=== PATIENT | female | born 1945 | race Caucasian/White ===

== ENCOUNTER 2017-02-14 05:15 | Inpatient (IN) | payer OTHER, MEDICARE ==
[2017-02-09 13:06] LABS: HEMATOCRIT 38.8 % (37.0-47.0); HEMOGLOBIN 12.8 gm/dL (12.0-15.0); MCH 28.9 pg (26.0-34.0); MCV 87.5 fL (80.0-100.0); RBC 4.43 mil/uL (4.20-5.00); RDW 14.7 % (10.5-14.5); WBC 14.1 thou/uL (4.0-11.0)
[2017-02-09 13:15] LABS: URINE BILIRUBIN NEGATIVE (Negative); URINE BLOOD NEGATIVE (Negative); URINE COLOR YELLOW; URINE GLUCOSE-RANDOM* NEGATIVE (Negative); URINE KETONES NEGATIVE (Negative); URINE LEUKOCYTES-REFLEX NEGATIVE (Negative); URINE PROTEIN (DIPSTICK) NEGATIVE (Negative); URINE SPECIFIC GRAVITY >= 1.030 (1.003-1.035); URINE UROBILINOGEN 0.2 E.U./dl (0.2-1.0)
[2017-02-09 13:23] LABS: ALBUMIN 3.8 g/dL (3.4-5.0); CALCIUM 8.9 mg/dL (8.5-10.1); CREATININE 1.1 mg/dL (0.6-1.0); POTASSIUM 4.4 mmol/L (3.5-5.1)
[~2017-02-14] VITALS: Ht 157.5 cm; Wt 81.6 kg
[2017-02-14] VITALS (7 sets, daily range): BP systolic 115–155; BP diastolic 77–94
--- NOTE | ~2017-02-14 | O ---
[facility] [place] [address] [place] [address] OPERATIVE REPORT Name: INGE TALLEY Room #: 411-P [facility] IN M.R.#: [id number] Admission: 02/14/17 Attend Phys: Олег Decker MD Discharge: Date of : 45 Report #: [id number] THIS REPORT FOR: //name// CC: Gregorio Decker DATE OF SERVICE: 02/14/2017 PREOPERATIVE DIAGNOSIS: Left knee osteoarthritis. POSTOPERATIVE DIAGNOSIS: Left knee osteoarthritis. PROCEDURE: Left total knee arthroplasty. SURGEON: Олег Decker MD HOME SUPERVISOR: Anastasiia Donnelly PA-C. ANESTHESIA: LMA with an adductor canal block. IMPLANTS: [employer] size 4 Legion cobalt chrome posterior stabilized femur, size 2 tibia, size 9 polyethylene and size 29 patella. TOURNIQUET TIME: 60 minutes. ESTIMATED BLOOD LOSS: 25 mL. COMPLICATIONS: None. SPECIMENS: None. CONDITION UPON LEAVING THE OPERATING ROOM: Stable. INDICATIONS FOR PROCEDURE: The patient is a 71-year-old female with severe left knee osteoarthritis. She had failed conservative treatment for this and after discussion with her, she elected for left total knee arthroplasty. DESCRIPTION OF PROCEDURE: Risks, benefits, alternatives, complications were discussed in detail with the patient including but not limited to risk of anesthesia, risk of damage to nerves, arteries, blood vessels, risk for infection, bleeding, risk for continued knee pain and need for reoperation. Informed consent was obtained from the patient. Left knee was appropriately marked in the preoperative holding area. Adductor canal block was placed by Anesthesia. IV Ancef was given for preoperative antibiotics. She was brought to the operating room and placed in supine position on the operating room table. Spinal anesthesia was attempted and was not successful and so it was decided to [address] [address] OPERATIVE REPORT Name: TALLEYINGE Room #: 411-P [facility] IN M.R.#: [id number] Admission: 02/14/17 Attend Phys: Олег Decker MD Discharge: Date of : 45 Report #: [id number] proceed with LMA anesthesia. After successful induction of anesthesia, a tourniquet was placed on the left thigh. Left lower extremity was prepped and draped in normal sterile fashion. Timeout was performed properly identifying the patient and procedure as well as the instrumentation and implants. All in the operating room were in agreement. Left lower extremity was exsanguinated, tourniquet was inflated. Tourniquet time was 60 minutes. Standard midline approach to the knee was made with 10 blade through the skin. Dissection was taken down sharply to the fascia and deep flaps were developed medially and laterally. Fresh 10 blade was used to make a medial parapatellar arthrotomy and the knee was inspected and there was extensive tricompartmental osteoarthritic change. Anterior horns of the meniscus were removed sharply. ACL and PCL were removed sharply. Deep retractors were placed. Patella was everted, knee was flexed. Drill was used to gain access to the canal of the femur and distal femoral cutting block was pinned in place. Distal femoral cut was made. The sizing block was placed and the femur was sized, found to be a size 4. The size 4, 4-in-1 cutting block was placed. Anterior, posterior and chamfer cuts were made. After this, the knee was hyperflexed. Attention was turned to the tibia. Drill was used to gain access to the canal of the tibia. Intramedullary alignment was used and resection was based off the lateral plateau and tibial resection was made. Medial osteophytes were removed with a rongeur. Posterior osteophytes were removed from the femur and flexion and extension gaps were checked and found to have good balance in flexion and extension both medially and laterally. The tibia was sized, found to be a size 2. A size 2 tibial trial was placed, a size 4 femoral trial was placed and the box cut was made. The post was placed and a size 9 polyethylene was trialed. Knee was taken through range of motion, found to be stable, found to have good balance in flexion and extension both medially and laterally. 9 mm was taken off the posterior surface of the patella and size 29 patellar resurfacing button was placed. Knee was taken through range of motion, found to be stable, found to have good patellar tracking. Trial components were removed. Bony ends were thoroughly irrigated with normal saline. A final size 2 tibia, size 4 Legion cobalt chrome posterior stabilized femur and a size 29 patella were cemented in place using standard cementation techniques. While the cement was curing, a periarticular injection consisting of morphine, ropivacaine, epinephrine and Toradol was placed around the knee joint. After the cement cured, the tourniquet was deflated. Hemostasis was obtained with Bovie cautery. Joint was thoroughly irrigated with normal saline. A final size 9 polyethylene was placed. A gram of vancomycin was placed in the knee joint. Fascia was closed with 0 Vicryl, skin was closed with 2-0 Vicryl and 3-0 Monocryl, Dermabond and a BUTCH dressing were applied. The patient tolerated this procedure well and went to the recovery room under the care of Anesthesia postoperatively. <ELECTRONICALLY SIGNED> By: Олег Decker MD 02/15/17 1540 [id number] Олег Decker MD /panfilo
[~2017-02-14 05:15] MED LIST: ASPIR 8181 MG PO; CLARITIN10 MG PO; FISH OIL 1,001000 M2 PO; SYNTHROID137 MCG PO; TRIPLE FLEX CA1 EACH PO; VITAMIN D-32000 UNIT PO
[2017-02-14 16:11] LABS: HIV-1 P24 AG Nonreactive (Nonreactive)
[2017-02-15 03:30] VITALS: BP 135/68
[2017-02-15 05:38] LABS: URINE BILIRUBIN NEGATIVE (Negative); URINE BLOOD NEGATIVE (Negative); URINE COLOR YELLOW; URINE GLUCOSE-RANDOM* TRACE (Negative); URINE KETONES NEGATIVE (Negative); URINE LEUKOCYTES-REFLEX NEGATIVE (Negative); URINE PROTEIN (DIPSTICK) NEGATIVE (Negative); URINE SPECIFIC GRAVITY 1.015 (1.003-1.035); URINE UROBILINOGEN 0.2 E.U./dl (0.2-1.0)
[2017-02-15 06:02] LABS: HEMOGLOBIN 10.3 gm/dL (12.0-15.0); MCH 28.8 pg (26.0-34.0); MCHC 33.4 g/dL (28.0-37.0); MCV 86.4 fL (80.0-100.0); PLATELET COUNT 277 thou/uL (150-400); RBC 3.59 mil/uL (4.20-5.00); RDW 14.5 % (10.5-14.5)
[2017-02-15 06:05] LABS: MANUAL DIFF YES
[2017-02-15 07:09] VITALS: BP 115/61
[2017-02-15 07:24] VITALS: BP 115/61
[2017-02-15 08:38] LABS: ABSOLUTE NEUTROPHILS 11.8 thou/uL (1.4-8.2); PLATELET ESTIMATE NORMAL; TOTAL CELL COUNT 100
[2017-02-15] MEDS ORDERED: CVS BUFFERED A325 MG PO (15:32)
[2017-02-15] MEDS ORDERED: HYDROCODON-ACE1 EAC7 PO (15:33)
[2017-02-15] MEDS ORDERED: MS CONTIN15 MG PO (15:33)
[2017-02-15 15:37] VITALS: BP 115/61
[2017-02-15 16:08] LABS: HBsAG-EMPLOYEE EXPOSURE Negative (Negative); HCV AB-EMPLOYEE EXPOSURE <0.1 (0.0-0.9)
== END 2017-02-15 18:25 | disposition home or self-care (01) | DRG 470 ==
LOC: TBA 05:15 → 4N 05:15 → PRE 10:04 → 4N 16:50
PROVIDERS: Internal Medicine; Orthopaedic Surgery
PROC: 0SRD0J9 Replacement of Left Knee Joint with Synthetic Substitute, Cemented, Open Approach (ICD-10-PCS; principal; 2017-02-14)
DX: M17.12 Unilateral primary osteoarthritis, left knee (principal); D62 Acute posthemorrhagic anemia; I10 Essential (primary) hypertension; E78.5 Hyperlipidemia, unspecified; E66.9 Obesity, unspecified; D72.829 Elevated white blood cell count, unspecified; R35.0 Frequency of micturition; Z68.32 Body mass index [BMI] 32.0-32.9, adult; Z90.710 Acquired absence of both cervix and uterus; Z90.5 Acquired absence of kidney; Z88.2 Allergy status to sulfonamides
CPT/HCPCS: 10790; 50010; 50101; 50415; 50954; 51130; 51225; 51771; 53000; 53078; 53364; 54118; 56527; 56528; 57095; 62110; 62900; 64041; 65085; 70005